=== PATIENT | female | born 1970 | race Caucasian/White ===

== ENCOUNTER → 2021-07-30 | Outpatient (CLI) | payer BC ==
[2021-07-24 15:00] VITALS: BP 170/91
[~2021-07-30] MED LIST: OXYC-316 PO; OXYC1TAB19 PO
--- NOTE | 2021-07-30 10:34 | KCIC ---
INDICATION: Reason: IDIOPATHIC ACUTE PANCREATITIS W/O NECROSIS OR INFECTION / Spl. Instructions: / History: New dx of pancreatitis on Jul 17. COMPARISON: CT from July 22, 2021 TECHNIQUE: MRI images are obtained through the abdomen without intravenous contrast including three-d imensional MRCP images FINDINGS: Abdominal aorta is not aneurysmal. Spleen is unremarkable. Postcholecystectomy. There is loss of signal within the liver on out of phase images compared to in phase. This can be see n with fatty infiltration. Edema is again seen at the pancreas. Abutting the pancreas and stomach there is repeat demonstration of a fluid collection which currently measures approximately 70 x 37 mm. Nodular thickening of the left adrenal gland which could be secondary to adenoma. Degenerative changes the spine which is not formally evaluated on this exam. Small left-sided pleural effusion partially seen. No common bile duct dilation. No definite filling defect is seen within the common bile duct to suggest stone. IMPRESSION: * Edema is again seen at the pancreas which can be seen with the patient's known pancreatitis. Eval uation for change is limited secondary to difference in modality but this appears slightly decreased from prior. * Repeat demonstration of a fluid collection adjacent to the stomach and spleen. Could be from cause s such as pseudocyst but cannot exclude superinfection on this exam. * Loss of signal within the liver on out of phase images which can be seen with fatty infiltration. * No significant common bile duct dilation. No MRI evidence of retained stone in the common bile darío t. Electronically signed by: Jef Luna MD (07/30/2021 10:31 AM) [id number]
== END ==
LOC: KCIC MRI 08:16
PROVIDERS: ATTEND Family Medicine
DX: K76.0 Fatty (change of) liver, not elsewhere classified (principal); K85.00 Idiopathic acute pancreatitis without necrosis or infection; J90 Pleural effusion, not elsewhere classified
CPT/HCPCS: 74181